=== PATIENT | female | born 1995 | race African-American/Black ===

== ENCOUNTER → 2020-09-23 | Outpatient (CLI) | payer MEDICAID ==
[~2020-09-23] MED LIST: PREN-145 OR
== END | disposition home or self-care (01) ==
LOC: OB 14:00
PROVIDERS: ATTEND Specialist
DX: Z34.92 Encounter for supervision of normal pregnancy, unspecified, second trimester (principal); Z3A.22 22 weeks gestation of pregnancy
CPT/HCPCS: 76805